=== PATIENT | male | born 1975 | race Caucasian/White ===

== ENCOUNTER 2017-03-23 20:08 | Emergency (ER) | payer BC ==
[~2017-03-23] VITALS: Ht 177.8 cm; Wt 110.4 kg
[2017-03-23 20:10] VITALS: TEMP 37.4; Ht 177.8 cm; Wt 110.4 kg
[2017-03-23] MEDS ORDERED: CEFTRIAXONE SOD INJ 1 GM ADDVIAL IV STA (20:29)
[2017-03-23] MEDS ORDERED: SODIUM CHLORIDE 0.9% 500ML 500 ML IV STA (20:29)
[2017-03-23] MEDS ORDERED: SULFAMETHOXAZOLE/TRIMETHOPRIM DS 800/160MG TAB PO STA (20:29)
[2017-03-23] MEDS ORDERED: EZET10TA38 PO (20:45)
[2017-03-23] MEDS ORDERED: IBUP-1050 PO (20:45)
[2017-03-23] MEDS ORDERED: PRT/20 PO (20:45)
[2017-03-23] MEDS ORDERED: CEPH500C2 PO (20:45)
[2017-03-23 21:13] LABS: BASO % 0.4 %; BASO ABS # 0.03 K/uL (0-0.2); COMPLETE YES; HEMATOCRIT 42.8 % (42-52); IG% 0.5 %; LYMPH ABS # 1.73 K/uL (1.2-3.4); MEAN CELL VOLUME 89.5 fL (80-100); MEAN CORPUSCULAR HEMOGLOBIN 30.5 pg (25-34); MEAN CORPUSCULAR HGB CONC 34.1 g/dl (32-36); MEAN PLATELET VOLUME 10.6 fL (7.4-10.4); MONO % 14.8 %; NEUT % 60.3 %; PLATELET COUNT 219 K/uL (130-400); RED BLOOD COUNT 4.78 M/uL (4.7-6.1); WHITE BLOOD COUNT 8.22 K/uL (4.8-10.8)
[2017-03-23 21:29] LABS: BUN/CREATININE RATIO 13.5 (10-20); CREATININE 1.1 mg/dl (0.60-1.40); POTASSIUM 3.7 mmol/L (3.5-5.1)
--- NOTE | 2017-03-23 22:02 | DIAGNOSTIC IMAGING REPORT ---
LEFT FOOT MIN 3 VIEWS ROUTINE CLINICAL HISTORY: L foot cellulitis - interdigital 4th and 5th toes and dorsal rajan COMPARISON: None. DISCUSSION: The bones and joint spaces appear intact. There is no evidence of fracture, dislocation or bony disease. There is no evidence for soft tissue swelling. IMPRESSION: Mild soft tissue edema. No acute bony abnormality. Heel spur. Electronically signed by: Seamus Mar M.D. 03/23/2017 10:01 PM Dictated Date/Time: 03/23/2017 10:00 PM
[2017-03-23 22:15] LABS: CALCIUM 8.9 mg/dl (8.5-10.1)
[2017-03-23] MEDS ORDERED: SULF800T23 PO (22:24)
--- NOTE | 2017-03-23 23:12 | EMERGENCY ROOM VISIT NOTE ---
History First contact with patient: 20:15 Chief Complaint: FOOT PAIN Stated Complaint: L FOOT SWELLING/INFECTION History of Present Illness The patient is a 41 year old male who presents to the Emergency Room with complaints of a left foot infection, swelling, increasing redness and not feeling well. The patient reports that he did not feel well 6 days ago, feeling foggy. He did not notice any unusual symptoms or sites of infection. , he started to notice redness around the base of his left fourth and fifth toes. By Saturday, he reported that the redness had significantly worsened. He called [facility] and was provided a prescription for Keflex 500 mg 4 times a day. He has been taking the medication for the past 24 hours without relief, and fact reports worsening redness and swelling. He rates his discomfort a 6 out of 10. The patient reports that he was outside earlier in the week mowing grass in [place]. He does not recall any injury to the foot. He denies any pain on the plantar aspect of the foot, ankle or leg. He denies paresthesias or numbness of the foot or toes. Tetanus immunization is up-to- date. The patient denies any antibiotic allergies. The patient did take some Tylenol this evening after feeling feverish at a [employer]. He is from [place] for the wedding, and was hoping to return home tomorrow morning. Review of Systems HEENT: Denies dizziness, visual problems, hearing loss, tinnitus. Denies difficulty swallowing or oral lesions. PULMONARY: Denies cough, shortness of breath, sputum production or hemoptysis. CARDIOVASCULAR: Denies chest pain, palpitations, dyspnea on exertion, orthopnea or peripheral edema. GASTROINTESTINAL: Denies diarrhea, constipation, nausea, vomiting, or abdominal pain. GENITOURINARY: Denies dysuria, frequency, urgency or nocturia. NEUROLOGIC: Denies history of epilepsy, CVA, TIA or chronic headaches. MUSCULOSKELETAL: Denies history of joint tenderness/swelling. SKIN: Denies rashes or lesions. PSYCHIATRIC: Denies history of depression or mental illness. ENDOCRINE: Denies history of diabetes or thyroid disorders. Past Medical/Surgical History Medical Problems: (1) GERD (gastroesophageal reflux disease) (2) Hypercholesterolemia Surgical Problems: (1) No history of previous surgery Family History FH: diabetes mellitus FH: heart disease FH: hypertension Social History Smoking Status: Never Smoker Alcohol Use: occasionally Marital Status: Housing Status: lives with family Occupation Status: employed Current/Historical Medications Scheduled Cephalexin Monohydrate (Keflex), 500 MG PO QID Ezetimibe/Simvastatin (Vytorin 10MG/20MG), 1 TAB PO QPM Pantoprazole (Protonix), 20 MG PO DAILY Sulfa/Trimethoprim (Bactrim Ds 800MG/160MG), 1 TAB PO BID Scheduled PRN Ibuprofen (Advil), 400 MG PO Q6H PRN for Pain Physical Exam Vital Signs Date Time Temp Pulse Resp B/P (MAP) Pulse Ox O2 Delivery O2 Flow Rate FiO2 03/23/17 20:10 37.4 92 18 124/86 96 Room Air Physical Exam CONSTITUTIONAL: Healthy and well nourished. Alert and oriented X 3 with positive affect. She does not appear acutely or toxic. HEENT: Normocephalic, atraumatic. Pupils equal, round and reactive. NECK: Full active range of motion without discomfort. RESPIRATORY: Clear to auscultation bilaterally with no wheezing, crackles, rhonchi or stridor. CARDIOVASCULAR: Regular rate and rhythm with no murmurs, rubs or gallops. MUSCULOSKELETAL: Examination of the left foot shows notable edema and erythema of the dorsal foot. He has a large area of rubor/ecchymosis of the dorsal forefoot, focused around the fourth and fifth interdigital space. The interdigital space appears macerated with no obvious depth or opening. The toes are edematous. The patient has no erythema or edema extending proximal to the ankle. Capillary refill is less than 2 seconds. INTEGUMENTARY: No rash or other significant dermatologic conditions noted. NEUROLOGIC: No focal neurologic deficits noted. Left foot and toes are sensory intact. Medical Decision & Procedures ER Provider Diagnostic Interpretation: My interpretation of left foot x-rays does not show any obvious fractures, radiopaque foreign bodies or periosteal reactions. Radiologist report is as follows: LEFT FOOT MIN 3 VIEWS ROUTINE CLINICAL HISTORY: L foot cellulitis - interdigital 4th and 5th toes and dorsal rajan COMPARISON: None. DISCUSSION: The bones and joint spaces appear intact. There is no evidence of fracture, dislocation or bony disease. There is no evidence for soft tissue swelling. IMPRESSION: Mild soft tissue edema. No acute bony abnormality. Heel spur. Laboratory Results 03/23/17 20:52 Red Blood Count 4.78, Mean Corpuscular Volume 89.5, Mean Corpuscular Hemoglobin 30.5, Mean Corpuscular Hemoglobin Concent 34.1, Mean Platelet Volume 10.6, Neutrophils (%) (Auto) 60.3, Lymphocytes (%) (Auto) 21.0, Monocytes (%) (Auto) 14.8, Eosinophils (%) (Auto) 3.0, Basophils (%) (Auto) 0.4, Neutrophils # (Auto ) 4.95, Lymphocytes # (Auto) 1.73, Monocytes # (Auto) 1.22, Eosinophils # (Auto ) 0.25, Basophils # (Auto) 0.03 03/23/17 20:52 Test 03/23/17 20:52 03/23/17 22:44 White Blood Count 8.22 K/uL (4.8-10.8) Red Blood Count 4.78 M/uL (4.7-6.1) Hemoglobin 14.6 g/dL (14.0-18.0) Hematocrit 42.8 % (42-52) Mean Corpuscular Volume 89.5 fL (80-100) Mean Corpuscular Hemoglobin 30.5 pg (25-34) Mean Corpuscular Hemoglobin Concent 34.1 g/dl (32-36) Platelet Count 219 K/uL (130-400) Mean Platelet Volume 10.6 fL (7.4-10.4) Neutrophils (%) (Auto) 60.3 % Lymphocytes (%) (Auto) 21.0 % Monocytes (%) (Auto) 14.8 % Eosinophils (%) (Auto) 3.0 % Basophils (%) (Auto) 0.4 % Neutrophils # (Auto) 4.95 K/uL (1.4-6.5) Lymphocytes # (Auto) 1.73 K/uL (1.2-3.4) Monocytes # (Auto) 1.22 K/uL (0.11-0.59) Eosinophils # (Auto) 0.25 K/uL (0-0.5) Basophils # (Auto) 0.03 K/uL (0-0.2) RDW Standard Deviation 42.7 fL (36.4-46.3) RDW Coefficient of Variation 13.0 % (11.5-14.5) Immature Granulocyte % (Auto) 0.5 % Immature Granulocyte # (Auto) 0.04 K/uL (0.00-0.02) Erythrocyte Sedimentation Rate 16 mm/hr (0-14) Anion Gap 8.0 mmol/L (3-11) Est Creatinine Clear Calc Drug Dose 112.2 ml/min Estimated GFR () 97.5 Estimated GFR (Non- 84.1 BUN/Creatinine Ratio 13.5 (10-20) Calcium Level 8.9 mg/dl (8.5-10.1) C-Reactive Protein 1.00 mg/dl (0-0.29) Bedside Lactic Acid Venous 0.76 mmol/L (0.90-1.70) The above labs were reviewed. C-reactive protein and sedimentation rate are elevated. Otherwise CBC, partial renal profile and bedside lactic acid are normal. Medications Administered Medications (Trade) Dose Ordered Sig/Jean Route Start Time Stop Time Status Last Admin Dose Admin Sodium Chloride 500 ml @ 999 mls/hr Q31M STAT IV 03/23/17 20:29 03/23/17 20:59 DC 03/23/17 21:08 999 MLS/HR Ceftriaxone Sodium (Rocephin Inj) 1 gm NOW STAT IV 03/23/17 20:29 03/23/17 20:33 DC 03/23/17 21:09 1 GM Trimethoprim/ Sulfamethoxazole (Septra Ds 800/ 160MG Tab) 1 tab NOW STAT PO 03/23/17 20:29 03/23/17 20:33 DC 03/23/17 21:09 1 TAB Procedure 1. IV hydration: The patient received a total saline 500 mL bolus 2. IV medications: The patient was initially administered Rocephin 1 g IVP. He was also administered Bactrim DS orally. ED Course Patient history and physical exam were performed. Nurse's notes were reviewed. Vital signs were reviewed and currently normal. Because of concern for cellulitis and possibility of sepsis given the patient's symptoms of not feeling well and fever this evening, I did elect to order lab work. The patient was in agreement. IV access was established, and labs were drawn, including blood cultures 2. X-rays of the left foot were normal. The patient was administered IV Rocephin and oral Bactrim. He refused any analgesics. Review of labs shows an elevated sedimentation rate and CRP, otherwise the patient has no leukocytosis. Bedside lactic acid level is normal. Blood cultures were collected prior to IV antibiotics and are currently pending. The patient was provided copies of his labs, imaging report and x-rays on disc. He was provided a home pack and prescription for Bactrim DS. He was instructed to continue and complete his Keflex antibiotics as previously prescribed. He was encouraged to keep the leg elevated for swelling and pain. Ibuprofen or Tylenol as needed for additional pain relief. The patient was instructed to follow-up with his family doctor on Saturday for recheck, seeking further emergent reevaluation at an emergency department for any progressively worsening infection, or if his family doctor cannot see him on Saturday. The patient was happy with plan of care, voiced understanding of all discharge instructions, and denied any significant pain at the time of discharge. Medical Decision Impression Primary Impression: Cellulitis of left foot Departure Information Prescriptions Sulfa/Trimethoprim (Bactrim Ds 800MG/160MG) Tab 1 TAB PO BID for 7 Days, #14 TAB Prov: Tushar Ruby PA 03/23/17 Referrals No Doctor, Assigned (PCP) Patient Instructions [facility]
[2017-03-23] MEDS ORDERED: SEPTRA DS HOME PACK 1 EA VIAL PO ONE (23:15)
[2017-03-23 23:26] VITALS: BP 142/81; PULSE 79; O2SAT 97
== END 2017-03-23 23:29 | disposition home or self-care (01) ==
LOC: C.EDB 20:11 → C.EDC 23:29
DX: L03.116 Cellulitis of left lower limb (principal); K21.9 Gastro-esophageal reflux disease without esophagitis; E78.00 Pure hypercholesterolemia, unspecified; Z83.3 Family history of diabetes mellitus; Z82.49 Family history of ischemic heart disease and other diseases of the circulatory system